=== PATIENT | female | born 1940 | race Caucasian/White ===

== ENCOUNTER → 2017-01-22 | Outpatient (CLI) | payer MEDICARE, BC ==
[~2017-01-22] MED LIST: EUTHYROX PO; LIPITOR 10MG10 MG PO; LOW DOSE ASPIRI81 MG PO; POTASSIUM CHLO10 ME5 PO; TRIAMTERENE/HCT1 TA2 PO
== END ==
LOC: MC.RAD 01-15 10:00
DX: Z12.31 Encounter for screening mammogram for malignant neoplasm of breast (principal); D24.2 Benign neoplasm of left breast

== ENCOUNTER → 2018-02-05 | Outpatient (CLI) | payer MEDICARE, BC | LOC: MC.RAD 13:18 | DX: Z12.31 Encounter for screening mammogram for malignant neoplasm of breast (principal); Z98.890 Other specified postprocedural states ==

== ENCOUNTER → 2019-03-14 | Outpatient (CLI) | payer MEDICARE, BC | LOC: MC.RAD 11:11 | DX: Z12.31 Encounter for screening mammogram for malignant neoplasm of breast (principal); Z98.82 Breast implant status ==

== ENCOUNTER 2023-08-07 09:27 | Inpatient (IN) | payer MEDICARE, BC ==
[~2023-08-07] VITALS: Ht 152.4 cm; Wt 52.2 kg
[2023-08-07] VITALS (14 sets, daily range): BP systolic 93–157; BP diastolic 53–93; PULSE 57–99; TEMP 97.6–98
[~2023-08-07 09:27] MED LIST changes: +ASPIRIN 81M81 MG/TA2 PO; +BETAPACE 80MG80 MG PO; +CEFTIN500 MG PO; +CIPRO 250MG TA250 MG PO; +CITRACAL-D3 ER1 EACH PO; +COZAAR100 MG PO; +DIPROSONE CR 45GM TP; +ELIQUIS 5MG PO; +FLOMAX 0.40.4 MG/CAP PO; +ILOTYCIN5 MG/GM OP; +K-DUR20 MEQ PO; +K-TAB10 PO; +LEVOXYL0.075 MG PO; +LIDEX CR 15GM TP; +PACERONE200 MG PO; +REFRESH 1 ML1 ML OD; +TOPROL XL100 MG PO; +VITAMIN B12 1541 TAB PO; +ZYRTEC 10MG10 MG PO
[2023-08-07] MEDS ORDERED: PACERONE100 MG PO (09:50)
[2023-08-07 10:21] LABS: BASO # 0.1 K/mm3 (0.0-0.2); BASO % 1.1 % (0.0-2.0); EOS # 0.1 K/mm3 (0.0-0.7); EOS % 1.1 % (0.0-4.0); GRAN # 2.9 K/mm3 (1.4-6.5); GRAN % 62.2 % (42.2-75.2); HEMOGLOBIN 11.5 g/dl (12.5-16.0); LYMPH # 1.2 K/mm3 (1.2-3.4); MEAN CELL VOLUME 98 fl (80.0-100.0); MEAN CORPUSCULAR HEMOGLOBIN 32 pg (27-31); MEAN CORPUSCULAR HGB CONC 33 g/dl (33.0-37.0); MEAN PLATELET VOLUME 8.9 fl (7.4-10.4); MONO # 0.4 K/mm3 (0.1-0.6); MONO % 9.2 % (1.7-9.3); PLATELET COUNT 230 K/mm3 (130-400); RED BLOOD COUNT 3.56 M/mm3 (4.10-5.30); REDCELL DISTRIBUTION WIDTH-CV 15.9 % (11.5-14.5)
[2023-08-07 10:22] LABS: HEMATOCRIT 34.9 % (37.0-47.0)
[2023-08-07 10:40] LABS: INR 1.3 (0.8-3.0)
[2023-08-07 10:46] LABS: CALCIUM 9.2 mg/dL (8.4-10.2); CREATININE, serum 1.19 mg/dL (0.57-1.11); POTASSIUM 4.3 mmol/L (3.5-4.5)
--- NOTE | 2023-08-07 13:45 | NUR ---
Patient to room 311 from the label remover. A&Ox4. VSS. Post op VS monitored. IV CDI. LF arm in sling. Pacemaker and loop recorder site CDI. Nurse oriented the patient to location, room and call light. Daughter at the bedside. Will continue to monitor. Call light within reach. Bed alarm on. Daughter assisting with ordering dinner
--- NOTE | 2023-08-07 22:49 | NUR ---
Patient assessed around 2009. Complained of level 8 pain to pacemaker site at that time. Given PRN Ultram. Rated pain at a 5 around 2144, and given 2nd dose of Ultram at that time. Sling to left arm. Gauze to pacemaker site CDI, gauze to loop recorder site CDI. Went over HS medications prior to giving. Roger and daughter report that her Amiodarone was decreased to 100 mg daily in the morning, and refused dose scheduled for tonight. Updated med rec and marked for physician to review dosage. Voices no further questions, needs, or concerns at this time. In bed with call light within reach. High fal risk precautions in place. Bed alarm on.
[2023-08-08] VITALS (10 sets, daily range): BP systolic 117–157; BP diastolic 61–92; PULSE 78–96; TEMP 97.4–99.2
[2023-08-08 05:14] LABS: BASO % 0.7 % (0.0-2.0); EOS # 0.1 K/mm3 (0.0-0.7); EOS % 1.5 % (0.0-4.0); GRAN # 3.4 K/mm3 (1.4-6.5); GRAN % 62.4 % (42.2-75.2); HEMOGLOBIN 11.5 g/dl (12.5-16.0); LYMPH # 1.3 K/mm3 (1.2-3.4); LYMPH % 23.6 % (20.0-51.0); MEAN CELL VOLUME 96 fl (80.0-100.0); MEAN CORPUSCULAR HEMOGLOBIN 33 pg (27-31); MEAN CORPUSCULAR HGB CONC 34 g/dl (33.0-37.0); MONO # 0.6 K/mm3 (0.1-0.6); MONO % 11.4 % (1.7-9.3); PLATELET COUNT 212 K/mm3 (130-400); RED BLOOD COUNT 3.48 M/mm3 (4.10-5.30); REDCELL DISTRIBUTION WIDTH-CV 15.9 % (11.5-14.5)
[2023-08-08 05:21] LABS: HEMATOCRIT 33.5 % (37.0-47.0)
[2023-08-08 05:39] LABS: CALCIUM 8.3 mg/dL (8.4-10.2); CREATININE, serum 0.98 mg/dL (0.57-1.11); POTASSIUM 4.6 mmol/L (3.5-4.5)
--- NOTE | 2023-08-08 06:04 | NUR ---
Patient has received PRN Tramadol for pain as requested. Sling to left arm. Dressings to left chest CDI. Voices no questions, needs, or concerns at this time. In bed with call light within reach. Bed alarm on.
--- NOTE | 2023-08-08 07:48 | NUR ---
Patient sitting up in bed, A&Ox4. VSS. IV CDI. LF arm in sling, ice on sites. Incisions CDI. No further needs expressed. Call light within reach. Bed alarm on
--- NOTE | 2023-08-08 10:31 | NUR ---
Initial visit; Patient and her daughter thanked Machine Finisher for stopping in to say "hello" and wishing her well and offering God's blessings.
--- NOTE | 2023-08-08 13:20 | NUR ---
Electroplating Laborer met with patient and her daughter, Gavi (ph#[phone]) to discuss discharge planning. Patient lives at [facility] in the [facility]. Patient sees Dr. Cid for primary care and obtains medications from either by mail or at [facility]. Patient uses a rollator for ambulation and uses the restroom independently. Patient does receive assistance with bathing every night and also will likely need some help dressing as she now has her arm in a sling. Patient has DPOA-HC in EMR which designates her daughter, Gavi. [facility]. SW contacted Mahsa at [facility] and faxed updates. Patient will need transportation arranged with [facility] at time of discharge. Discharge Plan: [facility]
--- NOTE | 2023-08-08 23:47 | NUR ---
patient lying in bed, alert and oriented x4. pt daughter (Gavi) at bedside. pt denies chest pain and shortness of breath at this time, reports some incision site soreness. left chest incision sites x2 dressings are clean, dry, and intact. right contreras skin tear wrapped with no new drainage noted. bandaid on the side of pt's right eye. generalized skin discoloration and bruising noted on extremities, along with dry, thin skin integrity and small scabbing on scalp. LF IV is clean, dry and intact. pt x 1 assist ambulate with walker to bathroom and back in bed with steady gait. sling applied to left arm. pt has no further needs, questions, or concerns at this time. call light within reach, will continue to monitor.
[2023-08-09] VITALS (17 sets, daily range): BP systolic 133–162; BP diastolic 74–131; PULSE 93–113; TEMP 97.5–98.7
--- NOTE | 2023-08-09 10:25 | NUR ---
REPORT CALLED TO PT NURSE PRIOR TO PT LEAVING DEPARTMENT. NO MEDS GIVEN FOR PAIN. INT SITE IS VERY BRUISED. OLD PACEMAKER SITE IS CDI. NEW SITE ABOVE THE PACEMAKER SITE IS COVERED AND CDI. PT HAS MANY BRUISED SITES AND TELLS THIS NURSE TO BE CAREFUL HER SKIN TEARS EASILY. BP WAS TAKEN ON LEFT LOWER LEG. DR RIVERA REMOVED SUFFICIENT AIR SO THE PNUEMOTHORAX IS NEARLY RECOVERED.
--- NOTE | 2023-08-09 11:54 | NUR ---
Initial visit: psychologist military personnel stopped by room on rounds. Pt was in PT. Daughter said they have no needs right now. Heavy Line Technician will follow up as needed.
--- NOTE | 2023-08-09 15:36 | NUR ---
benzene worker emailed clinical updates to Mahsa Ivy at [facility] as patient lives at [facility] in [facility]. Discharge Plan: Return to [facility]
--- NOTE | 2023-08-09 23:36 | NUR ---
Patient assessed around 1999. Complained of level 7 pain to left chest from movement. Given PRN Ultram and Acetaminophen as requested. On room air. LS coarse crackles in left lung holguin, clear in right. Has chest tube to left side, dressing CDI. Dressings to pacemaker and loop recorder removal site are CDI. Voices no questions, needs, or concerns at this time. In bed with call light within reach. High fall risk precautions in place. Bed alarm on.
[2023-08-10] VITALS (7 sets, daily range): BP systolic 131–157; BP diastolic 89–96; PULSE 94–107; TEMP 97.4–98.1
--- NOTE | 2023-08-10 06:10 | NUR ---
Patient has voiced no further questions, needs, or concerns at this time. No further complaints of pain or discomfort voiced at this time. In bed with call light within reach. High fall risk precautions in place. Bed alarm on.
--- NOTE | 2023-08-10 08:10 | NUR ---
PATIENT IS RESTING IN BED WITH EYES CLOSED. PATIENT EASY TO AROUSE, ALERT, AND ORIENTED. SHIFT ASSESSMENT COMPLETED. BANDAID TO RIGHT FOREHEAD IS CDI. CHEST DRESSING SITE IS CDI. PATIENT DENIES PAIN OR SOA. DRESSING TO RIGHT JARQUIN IS CDI. PATIENT STATED HER DAUGHTER CHANGED IT YESTERDAY. PATIENT SAYS SHE IS EAGER TO GET HOME TO [facility]. PATIENT DENIES ANY NEEDS OR CONCERNS AT THIS TIME. CALL LIGHT WITHIN REACH.
[2023-08-10 08:27] LABS: BASO % 0.4 % (0.0-2.0); EOS # 0.2 K/mm3 (0.0-0.7); EOS % 3.2 % (0.0-4.0); GRAN # 3.4 K/mm3 (1.4-6.5); GRAN % 63.9 % (42.2-75.2); HEMOGLOBIN 10.9 g/dl (12.5-16.0); LYMPH # 1.1 K/mm3 (1.2-3.4); LYMPH % 20.6 % (20.0-51.0); MEAN CELL VOLUME 97 fl (80.0-100.0); MEAN CORPUSCULAR HEMOGLOBIN 32 pg (27-31); MEAN CORPUSCULAR HGB CONC 33 g/dl (33.0-37.0); MEAN PLATELET VOLUME 8.8 fl (7.4-10.4); MONO # 0.6 K/mm3 (0.1-0.6); MONO % 11.7 % (1.7-9.3); PLATELET COUNT 168 K/mm3 (130-400); REDCELL DISTRIBUTION WIDTH-CV 15.6 % (11.5-14.5)
[2023-08-10 08:29] LABS: CALCIUM 8.1 mg/dL (8.4-10.2); CREATININE, serum 0.73 mg/dL (0.57-1.11); POTASSIUM 3.8 mmol/L (3.5-4.5)
[2023-08-10 08:31] LABS: HEMATOCRIT 32.9 % (37.0-47.0)
--- NOTE | 2023-08-10 09:35 | NUR ---
LEFT CHEST TUBE REMOVED BY DR LOPEZ. PATIENT TOLERATED PROCEDURE WELL. MINIMAL DRAINAGE NOTED. GUAZE AND TAPE DRESSING APPLIED. CDI.
--- NOTE | 2023-08-10 11:02 | NUR ---
PATIENT RESTING IN BED WATCHING TV. DAUGHTER AT BEDSIDE. AWAITING DISCHARGE. PATIENT DENIES ANY NEEDS OR CONCERNS AT THIS TIME.
[2023-08-10] MEDS ORDERED: CLEOCIN HCL300 MG PO (11:27)
[2023-08-10] MEDS ORDERED: PACERONE200 MG PO (11:29)
[2023-08-10] MEDS ORDERED: ELIQUIS 2.5 PO (11:29)
--- NOTE | 2023-08-10 13:39 | NUR ---
family support worker was notified patient is medically stable to discharge today. family support worker contacted [facility] whom expressed they would like updates on patient. family support worker provided clinical updates to [facility]. [facility] expressed they believed it would be beneficial for patient to return to SNF prior to assisted living. family support worker spoke with patient and patient's daughter regarding SNF or returning home. Patient would like to return home (assisted living) if possible. Family and [facility] agreed patient should return to SNF at least for the weekend and [facility] will evaluate her on Sunday if she would be able to return to her assisted living at that time. [facility] is able to transport patient at 1 pm. family support worker notified family, natural gas treating unit operator and nursing. family support worker notified doctor regarding SNF placement for updates to discharge order. family support worker emailed updated discharge orders to [facility]. family support worker was notified as patient is private pay, discharge orders need to add "emergency admission to halfway with current medications and treatment." family support worker updated doctor with this information. family support worker emailed updated discharge orders to [facility]. Discharge Plan: [facility]
== END 2023-08-10 13:10 | DRG 243 ==
LOC: COL.CAR 09:27 → MEDICAL 13:45 → COL.CAR 08-08 12:51 → MEDICAL 08-08 12:52
PROVIDERS: Internal Medicine Cardiovascular Disease; ADMIT Internal Medicine Cardiovascular Disease
PROC: 0JH606Z Insertion of Pacemaker, Dual Chamber into Chest Subcutaneous Tissue and Fascia, Open Approach (ICD-10-PCS; principal; 2023-08-08)
PROC: 02H63JZ Insertion of Pacemaker Lead into Right Atrium, Percutaneous Approach (ICD-10-PCS; 2023-08-08)
PROC: 0JH632Z Insertion of Monitoring Device into Chest Subcutaneous Tissue and Fascia, Percutaneous Approach (ICD-10-PCS; 2023-08-08)
PROC: 02HK3JZ Insertion of Pacemaker Lead into Right Ventricle, Percutaneous Approach (ICD-10-PCS; 2023-08-08)
DX: I49.5 Sick sinus syndrome (principal); J93.9 Pneumothorax, unspecified; I48.91 Unspecified atrial fibrillation; I10 Essential (primary) hypertension; E78.5 Hyperlipidemia, unspecified; R53.83 Other fatigue; Z79.01 Long term (current) use of anticoagulants
CPT/HCPCS: OP; C1785; C1894; C1898; G0378; J0665; J0780; J2250; J3010; J3370; J7030; J7050; Q9967